=== PATIENT | female | born 1995 ===

== ENCOUNTER → 2021-03-23 | Outpatient (CLI) | payer SELFPAY ==
[2021-03-25 01:07] LABS: CHLAMYDIA TRACHOMATIS, NAA Negative (Negative)
== END | disposition home or self-care (01) ==
LOC: LAB SHORT 16:38
PROVIDERS: Advanced Practice Midwife
DX: Z11.3 Encounter for screening for infections with a predominantly sexual mode of transmission (principal)
CPT/HCPCS: 87491; 87591

== ENCOUNTER → 2021-09-01 | Outpatient (CLI) | payer BC | END | disposition home or self-care (01) | LOC: LAB 14:55 → LAB SHORT 14:55 | DX: O09.93 Supervision of high risk pregnancy, unspecified, third trimester (principal) | CPT/HCPCS: 87081; 87150 ==

== ENCOUNTER 2021-09-22 19:24 | Inpatient (IN) | payer BC ==
[~2021-09-22] VITALS: Ht 177.8 cm; Wt 108.2 kg
[2021-09-22 21:07] LABS: BASOPHILS ABSOLUTE AUTO 0.02 K/mm3 (0.00-0.23); BASOPHILS PERCENT AUTO 0 % (0-2); EOSINOPHILS ABSOLUTE AUTO 0.04 K/mm3 (0.00-0.68); EOSINOPHILS PERCENT AUTO 0 % (0-6); Hematocrit 43.6 % (33.0-51.0); Hemoglobin 15.4 g/dL (11.5-16.0); IMMATURE GRAN ABSOLUTE AUTO 0.05 K/mm3 (0.00-0.10); IMMATURE GRAN PERCENT AUTO 0 % (0-1); LYMPHOCYTES ABSOLUTE AUTO 2.52 K/mm3 (0.84-5.20); LYMPHOCYTES PERCENT AUTO 22 % (21-46); MONOCYTES ABSOLUTE AUTO 0.62 K/mm3 (0.16-1.47); MONOCYTES PERCENT AUTO 5 % (4-13); Mean Corpuscular HGB 30.5 pg (26.0-34.0); Mean Corpuscular HGB Conc 35.3 g/dL (31.5-36.5); Mean Corpuscular Volume 86 fL (80-100); Mean Platelet Volume 8.9 fL (9.1-12.4); NEUTROPHILS ABSOLUTE AUTO 8.27 K/mm3 (1.96-9.15); NEUTROPHILS PERCENT AUTO 72 % (41-73); Platelet Count 217 K/mm3 (150-400); RDW Coefficient Variation 12.4 % (11.7-14.2); RDW Standard Deviation 38.7 fL (35.1-46.3); Red Blood Cell Count 5.05 M/mm3 (3.80-5.20); White Blood Cell Count 11.52 K/mm3 (4.00-11.30)
[2021-09-22 21:26] LABS: Albumin, Blood 2.9 g/dL (3.4-5.0); Albumin/Globulin Ratio 0.7 (0.8-1.8); Bilirubin, Total 0.3 mg/dL (0.1-1.0); Bun/Creatinine Ratio 15.9 (12.0-20.0); Calcium, Blood 8.9 mg/dL (8.5-10.1); Creatinine, Blood 0.76 mg/dL (0.40-1.00); Globulin, Blood 4.4 g/dL (2.2-4.0); Potassium, Blood 3.9 mmol/L (3.5-5.5); Total Protein, Blood 7.3 g/dL (6.4-8.2)
[2021-09-22] MEDS ORDERED: PRENATAL TABLE1 EAC2 PO (21:27)
[2021-09-22] MEDS ORDERED: LEVSOD75 PO (21:27)
[2021-09-22] MEDS ORDERED: ASPI81CH PO (21:27)
[2021-09-22 23:21] LABS: Creatinine, Urine Random 34.6 mg/dL (27.00-270.00); Protein, Urine Random 5.9 mg/dL (0.0-11.9); Protein/Creat Ratio, Ur Random 0.2
--- NOTE | 2021-09-23 19:13 | NUR ---
09/23/211912 Cha Solorzano PT ENTERED OR WITH GREGORIO CATHETER
--- NOTE | 2021-09-24 04:34 | NUR ---
2300- SURGICAL DRESSING WAS SATURATED WITH DRAINAGE, DRESSING REMOVED AND REPLACED BY RN. WILL CONTINUE TO MONITOR FOR FURTHER EXCESSIVE DRAINAGE.
[2021-09-24 05:39] LABS: BASOPHILS ABSOLUTE AUTO 0.02 K/mm3 (0.00-0.23); BASOPHILS PERCENT AUTO 0 % (0-2); EOSINOPHILS ABSOLUTE AUTO 0.04 K/mm3 (0.00-0.68); EOSINOPHILS PERCENT AUTO 0 % (0-6); Hematocrit 36.6 % (33.0-51.0); IMMATURE GRAN ABSOLUTE AUTO 0.04 K/mm3 (0.00-0.10); IMMATURE GRAN PERCENT AUTO 0 % (0-1); LYMPHOCYTES ABSOLUTE AUTO 1.79 K/mm3 (0.84-5.20); LYMPHOCYTES PERCENT AUTO 14 % (21-46); MONOCYTES ABSOLUTE AUTO 1.09 K/mm3 (0.16-1.47); MONOCYTES PERCENT AUTO 8 % (4-13); Mean Corpuscular HGB 30.7 pg (26.0-34.0); Mean Corpuscular HGB Conc 35.5 g/dL (31.5-36.5); Mean Corpuscular Volume 86 fL (80-100); NEUTROPHILS ABSOLUTE AUTO 9.94 K/mm3 (1.96-9.15); NEUTROPHILS PERCENT AUTO 77 % (41-73); Platelet Count 179 K/mm3 (150-400); RDW Coefficient Variation 12.3 % (11.7-14.2); RDW Standard Deviation 38.5 fL (35.1-46.3); Red Blood Cell Count 4.24 M/mm3 (3.80-5.20); White Blood Cell Count 12.92 K/mm3 (4.00-11.30)
--- NOTE | 2021-09-25 08:48 | NUR ---
DISCUSSED D/C INSTRUCTIONS AND PLAN WITH PATIENT AND . PATIENT TEARFUL AND NERVOUS ABOUT GOING HOME AND BEING ABLE TO GET IN AND OUT OF BED AND COUCH. ANSWERED PT'S AND 'S QUESTIONS QUESTIONS AND CONCERNS. PLAN FOR FEEDING NB DISCUSSED. PARENTS VERBALIZE UNDERSTANDING. PT CONCERNED SHE HASN'T HAD A BM. DISCUSSED BOWEL CARE. PT UNSURE ABOUT BF. WE DISCUSSED HER CONCERNS AND OTHER FEEDING OPTIONS. PT REASSURED WITH BF AT THIS TIME AND PATIENT DESIRES TO CONTINUE BF AT THIS TIME. NB TO BREAST AND LATCHED GOOD WITHOUT SHEILD. PT CONFORTABLE WITH LATCH BUT TEARFUL ABOUT SENSATION AND CONCERNS SHE ISN'T GETTING ENOUGH
[2021-09-25] MEDS ORDERED: Masophen500 MG PO (09:56)
[2021-09-25] MEDS ORDERED: IBUP800 PO (09:56)
--- NOTE | 2021-09-25 12:07 | NUR ---
PT UP AMBULATING IN THE HALLS. REPORTS SHE FEELS A LOT BETTER AND MORE COMFORTABLE WITH GOING HOME. DENIES PAIN AND DWIGHT NB AND SELF CARE WITH ASSISTANCE FROM . PT APPEARS HAPPY AND MORE CONFIDENT
--- NOTE | 2021-09-25 13:50 | NUR ---
PAIN RX GIVEN PER PT REQUEST PRIOR TO D/C HOME SINCE DELAY OF PAIN MEDS FROM PHARMACY WILL OCCUR. PT ALSO REQUESTS ANOTHER DOSE OF M.O.M.
--- NOTE | 2021-09-25 13:55 | NUR ---
KENN STRIPS REPLACED PER Tony MCCARTHY CNM
[2021-09-25] MEDS ORDERED: ROXICODONE5 MG PO (14:02)
--- NOTE | 2021-09-25 14:27 | NUR ---
D/C INSTUCTIONS DISCUSSED AND SIGNED. MOM COMFORTABLE WITH D/C HOME. DWIGHT NB AND SELF CARE WELL. NO QUESTIONS OR CONCERNS AT THIS TIME.
--- NOTE | 2021-09-25 14:35 | NUR ---
d/c home with baby
== END 2021-09-25 14:35 | disposition home or self-care (01) | DRG 788 ==
LOC: OBS 19:24 → BC 19:24 → OBS 20:41 → BC 20:42
PROVIDERS: Obstetrics & Gynecology; ADMIT Family Medicine
PROC: 10H07YZ Insertion of Other Device into Products of Conception, Via Natural or Artificial Opening (ICD-10-PCS; 2021-09-23)
PROC: 3E033VJ Introduction of Other Hormone into Peripheral Vein, Percutaneous Approach (ICD-10-PCS; 2021-09-23)
PROC: 3E0P7VZ Introduction of Hormone into Female Reproductive, Via Natural or Artificial Opening (ICD-10-PCS; 2021-09-23)
PROC: 00HU33Z Insertion of Infusion Device into Spinal Canal, Percutaneous Approach (ICD-10-PCS; 2021-09-23)
PROC: 10D00Z1 Extraction of Products of Conception, Low, Open Approach (ICD-10-PCS; principal; 2021-09-23 18:30)
DX: O13.4 Gestational [pregnancy-induced] hypertension without significant proteinuria, complicating childbirth (principal); O99.284 Endocrine, nutritional and metabolic diseases complicating childbirth; L40.50 Arthropathic psoriasis, unspecified; E03.9 Hypothyroidism, unspecified; Z37.0 Single live birth; Z3A.38 38 weeks gestation of pregnancy; Z79.899 Other long term (current) drug therapy
CPT/HCPCS: 36415; 51702; 80053; 81003; 82570; 84156; 84443; 85025; 86850; 86900; 86901; A9270; J0456; J0690; J1885; J2001; J2405; J2590; J2704; J2765; J3010; J7050; J7120